=== PATIENT | female | born 1995 | race Caucasian/White ===

== ENCOUNTER 2019-11-21 23:18 | Emergency (ER) | payer SELFPAY ==
[~2019-11-21] VITALS: Ht 157.5 cm; Wt 59.0 kg
[2019-11-21 23:36] VITALS: BP 124/59
--- NOTE | 2019-11-21 23:51 | PHYS DOC ---
Past History Past Medical History: Other Additional Past Medical Histor: CELIAC Past Surgical History: No Surgical History Alcohol Use: Rarely Adult General Chief Complaint Chief Complaint: SEXUALLY TRANSMITTED DISEASE HPI HPI Patient is a 24-year-old female who presented to ER today wanted to be treated for Chlamydia. Patient said her boyfriend just called her to inform that he was tested positive for chlamydia and herpes virus a few day ago. The last time she has sexual intercourse with him was 6 days ago. She denies any vaginal discharge, no rash. She denies any abdominal pain, no fever. Patient just wanted be treated for Chlamydia. All other ROS is negative unless otherwise noted in HPI Review of Systems Review of Systems See above Allergies Allergies Allergies Coded Allergies Type Severity Reaction Last Updated Verified pseudoephedrine Allergy Intermediate 11/21/19 Yes Physical Exam Physical Exam See above Constitutional: Well developed, well nourished, no acute distress, non-toxic appearance. [] HENT: Normocephalic, atraumatic, bilateral external ears normal, oropharynx moist, no oral exudates, nose normal. [] Eyes: PERRLA, EOMI, conjunctiva normal, no discharge. [] Neck: Normal range of motion, no tenderness, supple, no stridor. [] Cardiovascular:Heart rate regular rhythm, no murmur [] Lungs & Thorax: Bilateral breath sounds clear to auscultation [] Abdomen: Bowel sounds normal, soft, no tenderness, no masses, no pulsatile masses. [] Skin: Warm, dry, no erythema, no rash. [] Back: No tenderness, no CVA tenderness. [] Extremities: No tenderness, no cyanosis, no clubbing, ROM intact, no edema. [] Neurologic: Alert and oriented X 3, normal motor function, normal sensory function, no focal deficits noted. [] Psychologic: Affect normal, judgement normal, mood normal. [] Current Patient Data Vital Signs Vital Signs Date Time Temp Pulse Resp B/P (MAP) Pulse Ox O2 Delivery O2 Flow Rate FiO2 11/21/19 23:36 98.0 68 18 98 Room Air EKG EKG [] Radiology/Procedures Radiology/Procedures [] Course & Med Decision Making Course & Med Decision Making Pertinent Labs and Imaging studies reviewed. (See chart for details) She was given a shot of Rocephin 250 mg IM, and 1 g of Zithromax by mouth. Chinmay baez was instructed to abstinent from sexual intercourse with her boyfriend until they are both tested negative for chlamydia. She was recommended to follow with the local health department for further evaluation. Kiran Disclaimer Kiran Disclaimer This electronic medical record was generated, in whole or in part, using a voice recognition dictation system. Departure Departure: Impression: Primary Impression: STD exposure Disposition: HOME, SELF-CARE Condition: STABLE Referrals: PCP,NO (PCP) FOLLOW UP WITH LOCAL HEALTH DEPARTMENT FOR FURTHER STD EVALUATION. Patient Instructions: Sexually Transmitted Disease Additional Instructions: DO NOT HAVE SEXUAL INTERCOURSE WITH YOUR BOYFRIEND UNTIL YOU AND HIM ARE TESTED NEGATIVE FOR CHLAMYDIA. SAFIA CORONADO DO Nov 21, 2019 23:51
[2019-11-22] MEDS ORDERED: AZITHROMYCIN 250 MG TABLET. PO ONE (00:30)
[2019-11-22] MEDS ORDERED: cefTRIAXone IM 250 MG VIAL IM ONE (00:30)
== END 2019-11-22 00:27 | disposition home or self-care (01) ==
LOC: ER 23:18
DX: Z20.2 Contact with and (suspected) exposure to infections with a predominantly sexual mode of transmission (principal); Z88.8 Allergy status to other drugs, medicaments and biological substances
CPT/HCPCS: 96372; 99283; J0456; J0696